=== PATIENT | male | born 1995 | race Caucasian/White ===

== ENCOUNTER 2017-09-15 05:35 | Day surgery (SDC) | payer BC ==
[2017-09-12 10:45] VITALS: BMI 23.1
[2017-09-15] MEDS ORDERED: Lidocaine 1% w/Epinephrine 1:200K 30 ML VIAL ONE (06:45)
[2017-09-15] MEDS ORDERED: Bupivacaine/Epinephrine 0.25% 30 ML VIAL ONE (06:45)
[2017-09-15] MEDS ORDERED: Bacitracin Zinc Ointment 30 gm TUBE ONE (06:46)
[2017-09-15] MEDS ORDERED: Midazolam HCl 2 mg/2 ml Vial ONE (06:58)
[2017-09-15] MEDS ORDERED: Fentanyl 100 MCG/2 ML VIAL ONE ×2 (06:59)
[2017-09-15] MEDS ORDERED: HYDROmorphone 0.5 MG/0.5 ML SYRINGE ONE (07:00)
[2017-09-15] MEDS ORDERED: Sodium Chloride 0.9% 10 ML ONE (07:02)
[2017-09-15] MEDS ORDERED: Clindamycin/D5W 900 mg/50 ml Premix Bag ONE (07:38)
[2017-09-15] MEDS ORDERED: EPINEPHrine 1 MG/ML AMP ONE (07:49)
[2017-09-15] MEDS ORDERED: Gelfilm 1 EA Packet ONE (07:53)
[2017-09-15] MEDS ORDERED: Morphine 4 MG/ML VIAL ONE (10:45)
[2017-09-15] MEDS ORDERED: Promethazine HCl 25 MG/ML VIAL ONE (11:00)
[2017-09-15] MEDS ORDERED: HYDROcodone/Acetaminophen 5/325 mg Tablet ONE (11:52)
--- NOTE | 2017-09-15 13:15 | OP ---
DATE OF PROCEDURE: 09/15/2017 PREOPERATIVE DIAGNOSIS: Left total perforation. PROCEDURES: 1. Left tympanoplasty, mastoidectomy without ossicular change reconstruction. 2. Microscopic surgical procedure. 3. Facial nerve monitoring for 2 hours. POSTOPERATIVE DIAGNOSIS: Left total perforation. SURGEON: Suresh Daniels M.D. ANESTHESIA: General. COMPLICATIONS: None. ESTIMATED BLOOD LOSS: 5 mL SPECIMENS: None. DRAINS: None. DISPOSITION: Stable to recovery room. SUMMARY: Left tympanoplasty, mastoidectomy, chorda tympani nerve intact, ossicles moved well. Did n ot specifically identify the incus and the mastoid, excellent mastoid flow through. The perforation was near total and it was basically dissected annulus completely from the 2 o'clock going clockwise t o the 11 o'clock. This flap was elevated superiorly and placed the graft in and recompressed the chaparro ulus back down circumferentially. We had good skin squamous tissue to use on the canal as well. The middle ear space was benign, lysis of some adhesions between the malleus and promontory. Gelfoam an d Gelfilm used. PROCEDURE IN DETAIL: 1. Left tympanoplasty mastoidectomy without ossicular chain reconstruction: After informed consent was obtained, the patient was taken to the operating room and placed in the supine position. General endotracheal anesthetic was administered. Table was rotated 180 degrees, left ear was identified an d promptly injected postauricular and transcanal 0.25% Marcaine with epinephrine. With the left ear prepped and draped in the sterile fashion. Microscope was brought in view and irrigated with copious amounts of saline in the ear canal and elevated tympanomeatal flap from 12 to 5 o'clock position and also anterior flap from 11 down to 7 o'clock. Postauricular incision was made and carried down. Th e pericranial flap elevated based anteriorly. Cortical mastoid was performed and had great flow thro ugh, did not open the facial recess or identify facial nerve specifically either in the mesotympanum or in the mastoid. When these flaps elevated, good exposure, rimmed the perforation, what jace lux was of it, and debrided the edge of the annulus with a Michael needle. Both posterior and anterior f laps were brought down then into the middle ear space. I drilled the anterior canal wall down approx imately 2 mm. This gave much better exposure. We then were able to place Gelfilm, Gelfoam and the f lap underneath the malleus and was brought out well anteriorly, superiorly and inferiorly up about 1 mm. They were placed in the annulus down over this, it fit really nicely into this annular groove an d then compressed it with Gelfilm multiple pieces laterally and then Gelfoam compressed. Postauricul ar incision was closed in layers with 2-0 and 3-0 and Dermabond for the skin. Gelfoam was used in th e lateral part of the ear canal. Bacitracin ointment and a cotton ball placed over this. 2. Microscopic surgical procedure: Throughout the entirety of the operation, a microscope was used as integral part of the procedure using 2 to 14 power and high illumination. 3. Facial nerve monitoring for 2 hours: Beginning the operation, EMG electrodes were placed, orbicu stephen oculi and orbicularis yahaira, attached to the neuro integrity monitoring system. There was no no rmal stimulation was noted throughout, communication with anesthesia showed that the patient was not paralyzed. The facial nerve was not identified in the mastoid or in the mesotympanum. With these procedures completed, the patient tolerated well and was turned over to Anesthesia in a st able condition.
[2017-09-15] MEDS ORDERED: PROPOFOL 200 MG/20 ML VIAL ONE (16:45)
[2017-09-15] MEDS ORDERED: Dexamethasone 20 MG/5 ML VIAL ONE (16:45)
[2017-09-15] MEDS ORDERED: Ondansetron HCl/PF 4 MG/2 ML Vial ONE (16:45)
[2017-09-15] MEDS ORDERED: Lidocaine 1% PF 5 ML VIAL ONE (16:45)
[2017-09-15] MEDS ORDERED: Succinylcholine Chloride 20 MG/ML 10 ml SYRINGE FS ONE (16:45)
== END 2017-09-15 13:00 | disposition home or self-care (01) ==
LOC: SDC 05:35
PROVIDERS: ATTEND Otolaryngology Otology & Neurotology
PROC: 09Q80ZZ Repair Left Tympanic Membrane, Open Approach (ICD-10-PCS; principal; 2017-09-15)
DX: H72.822 Total perforations of tympanic membrane, left ear (principal); H90.2 Conductive hearing loss, unspecified; Z88.1 Allergy status to other antibiotic agents; Z88.0 Allergy status to penicillin
CPT/HCPCS: 96374; 96375; J0171; J1100; J1170; J2001; J2250; J2270; J2405; J2550; J2704; J3010; J3490